=== PATIENT | male | born 1995 | race Hispanic/Latino ===

== ENCOUNTER → 2022-09-15 19:23 | Outpatient (CLI) | payer OTHER, SELFPAY | PROVIDERS: Visit Provider Physician Assistant | DX: L02.512 Cutaneous abscess of left hand (principal) | CPT/HCPCS: 87070; 87075; 87205 ==

== ENCOUNTER → 2025-04-05 13:56 | Outpatient (CLI) | payer OTHER, SELFPAY ==
--- NOTE | 2025-04-05 14:00 | DI.RAD.S_ITS ---
PROCEDURE: XR CERVICAL SPINE 2V OR 3V INDICATIONS: Whiplash evaluate cervical lordosis TECHNIQUE: Three view(s) of the cervical spine were acquired. COMPARISON: None. FINDINGS: Bones: Straightening of normal cervical lordosis. No acute fracture or dislocation. The lateral masses of C1 appear intact on the odontoid view. No suspicious bony lesions. Soft tissues: No prevertebral soft tissue swelling. IMPRESSION: No displaced fracture or traumatic subluxation. Dictated by: Cristino Santos M.D. on 04/05/2025 at 15:49 Approved by: Cristino Santos M.D. on 04/05/2025 at 15:49
== END ==
LOC: RAD 13:59
PROVIDERS: Referring Provider Chiropractor; Visit Provider Chiropractor
DX: M54.2 Cervicalgia (principal); V89.2XXA Person injured in unspecified motor-vehicle accident, traffic, initial encounter
CPT/HCPCS: 72040